=== PATIENT | female | born 1995 | race Caucasian/White ===

== ENCOUNTER → 2017-08-03 | Outpatient (CLI) | payer BC ==
[~2017-08-03] MED LIST: IBU600 MG PO; PROTONIX20 MG PO
== END ==
LOC: LAC 13:57
DX: Z39.1 Encounter for care and examination of lactating mother (principal); Z71.89 Other specified counseling

== ENCOUNTER → 2017-10-14 | Outpatient (CLI) | payer BC | LOC: LAC 13:03 | DX: Z39.1 Encounter for care and examination of lactating mother (principal); Z71.89 Other specified counseling ==

== ENCOUNTER 2019-03-12 06:46 | Inpatient (IN) | payer BC ==
[2019-03-12] VITALS (44 sets, daily range): BP systolic 93–138; BP diastolic 51–88; PULSE 55–103; TEMP 98–98.5
[~2019-03-12] VITALS: Ht 162.6 cm; Wt 69.1 kg
--- NOTE | 2019-03-12 06:55 | NUR ---
0657- Pt arrives on unit for scheduled induction, ambulatory from Admissions with , Bora. Oriented to room. Pt into bathroom, voids, changes into gown. 0703- Pt into bed, EFM and TOCO on and tracing. Assessment completed. IV start and labs obtained without difficulty. Consents explained and signed.
[2019-03-12] MEDS ORDERED: ZOFRAN 4MG T4 MG/TAB SL (07:09)
[2019-03-12] MEDS ORDERED: ZANTAC 150MG T150 MG PO (07:09)
[2019-03-12] MEDS ORDERED: CONCEPT DHA1 CAP PO (07:09)
[2019-03-12 08:09] LABS: BASO # 0.1 (0.0-0.2); BASO % 0.5 % (0.0-2.0); EOS % 0.4 % (0-4.0); GRAN # 7.7 (1.4-6.5); GRAN % 75.3 % (42.2-75.2); HEMATOCRIT 38.7 % (37.0-47.0); HEMOGLOBIN 12.4 g/dl (12.5-16.0); LYMPH # 1.5 (1.2-3.4); LYMPH % 14.7 % (20.0-51.0); MEAN CELL VOLUME 79 fl (80.0-100.0); MEAN CORPUSCULAR HEMOGLOBIN 25 pg (27.0-31.0); MEAN CORPUSCULAR HGB CONC 32 g/dl (33.0-37.0); MEAN PLATELET VOLUME 10.2 fl (7.4-10.4); MONO # 0.9 (0.1-0.6); MONO % 8.4 % (1.7-9.3); PLATELET COUNT 276 K/mm3 (130-400); RED BLOOD COUNT 4.91 M/mm3 (4.10-5.30); REDCELL DISTRIBUTION WIDTH-CV 16.2 % (11.5-14.5)
--- NOTE | 2019-03-12 12:15 | NUR ---
Naty- HAILY Long at bedside for epidural placement. Pt repositioned to sitting on side of bed. Fluid bolus initiated. 1203- O2 sat monitor on and tracing. FHR tracing well on monitor. 1209- Test dose, see anesthesia record. 1213- Sat monitor off. Pt assisted to semi-fowlers with WL.
--- NOTE | 2019-03-12 14:00 | NUR ---
1346- Pt repositioned self to , Pt calls RN to bedside excavating contractor light, vomiting. Pt states feeling better after. EFM and TOCO adjusted. Wash cloth given. Pt resting comfortably.
--- NOTE | 2019-03-12 19:00 | NUR ---
Pt up to the bathroom with standby assist and without complications. Pt was able to void. Carlie-care done. Pt transferred ambulatory to room 216. Oriented to room, bed and call light within reach. Plan of care reviewed.
[2019-03-13 03:15] VITALS: BP 101/52; PULSE 66; TEMP 97.9
[2019-03-13 09:00] VITALS: BP 111/54; PULSE 71; TEMP 98.4
--- NOTE | 2019-03-13 10:35 | NUR ---
Initial visit; Parents thanked Pest Control Chemical Technician for looking in on her and offering congratulations and God's blessings for the of their daughter. Pest Control Chemical Technician thanked them for choosing [facility].
[2019-03-13 19:20] VITALS: BP 122/75; PULSE 60; TEMP 98.2
[2019-03-14 07:15] VITALS: BP 110/62; PULSE 68; TEMP 98
[2019-03-14] MEDS ORDERED: IBU800 M1 PO (09:08)
== END 2019-03-14 12:00 | disposition home or self-care (01) | DRG 807 ==
LOC: LDR 06:46 → OB 06:54 → LDR 06:54 → OB 20:29
PROVIDERS: ADMIT Student in an Organized Health Care Education/Training Program
PROC: 10E0XZZ Delivery of Products of Conception, External Approach (ICD-10-PCS; principal; 2019-03-12)
PROC: 10907ZC Drainage of Amniotic Fluid, Therapeutic from Products of Conception, Via Natural or Artificial Opening (ICD-10-PCS; 2019-03-12)
PROC: 3E033VJ Introduction of Other Hormone into Peripheral Vein, Percutaneous Approach (ICD-10-PCS; 2019-03-12)
DX: O99.62 Diseases of the digestive system complicating childbirth (principal); Z37.0 Single live birth; O70.1 Second degree perineal laceration during delivery; K21.9 Gastro-esophageal reflux disease without esophagitis; O69.1XX0 Labor and delivery complicated by cord around neck, with compression, not applicable or unspecified; Z3A.40 40 weeks gestation of pregnancy
CPT/HCPCS: J2405; J2590; J7120

== ENCOUNTER → 2019-04-12 | Outpatient (CLI) | payer BC ==
[~2019-04-12] MED LIST changes: +CONCEPT DHA1 CAP PO; +IBU800 M1 PO; +ZANTAC 150MG T150 MG PO; +ZOFRAN 4MG T4 MG/TAB SL
--- NOTE | 2019-04-12 15:25 | NUR ---
Pt, Fara Craig, presents for outpatient consult with one month old baby girl, Rhianna Craig. Pt has concerns of poor latch and reports Rhianna pops off the breast frequently, sounds like she has swallowing issues and clicking with nursing. Rhianna was born on [birth year] and weighed 8#9.9oz. Today she weighs 9#15.1oz. Pt breastfeeds Rhianna, who latches on easily and properly for a minute or so but when milk starts to let down she starts struggling to coordinate swallows with breathing and comes off the breast, or pt removes her when she senses Rhianna is struggling. After that inital session Rhianna relatches 3-4 times, and repeats the feeding behavior again after < 1 min at the breast again. Pt instructed on a couple holds/angles that may help Rhianna handle the milk flow, which seems to help, as she stays attached and does not gulp. After less than 10 min of actually staying latched and , Rhianna has a weight gain of 3.6oz (104 gms). LC reviews block feeding as a method to decrease oversupply that should help decrease forceful let-down as well. POC: Continue ad peewee with use of block feeding schedule, and modified holds. F/U: as scheduled with physician and LC as desired. Questions invited and answered.
== END ==
LOC: OLC 14:48
DX: Z39.1 Encounter for care and examination of lactating mother (principal)

== ENCOUNTER 2022-03-31 06:14 | Inpatient (IN) | payer OTHER ==
[2022-03-31] VITALS (31 sets, daily range): BP systolic 107–148; BP diastolic 54–94; PULSE 53–112; TEMP 97.7–98.3
[~2022-03-31] VITALS: Ht 162.6 cm; Wt 71.4 kg
[2022-03-31 07:20] LABS: BASO % 0.2 % (0.0-2.0); EOS % 0.2 % (0.0-4.0); GRAN # 7.4 K/mm3 (1.4-6.5); GRAN % 78.9 % (42.2-75.2); HEMATOCRIT 40.9 % (37.0-47.0); HEMOGLOBIN 13.9 g/dl (12.5-16.0); LYMPH # 1.5 K/mm3 (1.2-3.4); LYMPH % 16.2 % (20.0-51.0); MEAN CELL VOLUME 83 fl (80.0-100.0); MEAN CORPUSCULAR HEMOGLOBIN 28 pg (27-31); MEAN CORPUSCULAR HGB CONC 34 g/dl (33.0-37.0); MEAN PLATELET VOLUME 10.7 fl (7.4-10.4); MONO # 0.4 K/mm3 (0.1-0.6); MONO % 4.3 % (1.7-9.3); PLATELET COUNT 212 K/mm3 (130-400); RED BLOOD COUNT 4.95 M/mm3 (4.10-5.30); REDCELL DISTRIBUTION WIDTH-CV 12.9 % (11.5-14.5)
[2022-03-31] MEDS ORDERED: TUMS500 MG (09:15)
[2022-03-31] MEDS ORDERED: PRILOTC (09:15)
--- NOTE | 2022-03-31 10:43 | NUR ---
1030-PT SITTING FOR EPIDURAL. UNABLE TO CONTINOUSLY MONITOR FHR. RN AND ANESTHESIA AT BEDSIDE. IV BOLUS GIVEN, PULSE OX ON, TIME OUT COMPLETED.
--- NOTE | 2022-03-31 14:40 | NUR ---
1253-PT PUSHING WITH CONTRACTIONS. RN AND MD AT BEDSIDE MONITORING FHR. PT TOLERATING WELL. CATEGORY 1 STRIP AT THIS TIME.
--- NOTE | 2022-03-31 19:58 | NUR ---
PATIENT OBSERVED AMBULATING OFF THE UNIT TO THE NURSERY WITH SPOUSE TO VISIT BABY WITH NO APPARENT SIGN OF DISTRESS.
[2022-04-01 04:00] VITALS: BP 114/56; PULSE 77; TEMP 98
[2022-04-01 08:22] VITALS: BP 101/60; PULSE 63; TEMP 97.7
--- NOTE | 2022-04-01 09:49 | NUR ---
Initial visit; Patient resting, Roll Cutter left card offering congratulations and God's blessings for the of her daughter and information regarding the availability of [facility] at our hospital.
[2022-04-01 16:37] VITALS: BP 113/72; PULSE 60; TEMP 98.3
[2022-04-01 19:55] VITALS: BP 120/70; PULSE 58; TEMP 98.4
[2022-04-02 08:04] VITALS: BP 104/63; PULSE 55; TEMP 97.7
== END 2022-04-02 12:20 | disposition home or self-care (01) | DRG 807 ==
LOC: OB 06:14 → LDR 06:14 → OB 19:30
PROVIDERS: ADMIT Student in an Organized Health Care Education/Training Program
PROC: 10E0XZZ Delivery of Products of Conception, External Approach (ICD-10-PCS; principal; 2022-03-31)
PROC: 0KQM0ZZ Repair Perineum Muscle, Open Approach (ICD-10-PCS; 2022-03-31)
PROC: 10907ZC Drainage of Amniotic Fluid, Therapeutic from Products of Conception, Via Natural or Artificial Opening (ICD-10-PCS; 2022-03-31)
DX: O48.0 Post-term pregnancy (principal); Z37.0 Single live birth; Z3A.40 40 weeks gestation of pregnancy; O76 Abnormality in fetal heart rate and rhythm complicating labor and delivery; O70.1 Second degree perineal laceration during delivery; O69.81X0 Labor and delivery complicated by cord around neck, without compression, not applicable or unspecified
CPT/HCPCS: J2405; J2590; J2795; J7120

== ENCOUNTER 2024-03-16 19:04 | Outpatient (CLI) | payer OTHER ==
[~2024-03-16] VITALS: Ht 162.6 cm; Wt 68.6 kg
[~2024-03-16 19:04] MED LIST changes: +PRILOTC; +TUMS500 MG
--- NOTE | 2024-03-16 19:10 | NUR ---
Ambulatory to unit for labor assessment. Oriented to room, plan of care. Pt reports " my [age] year old elbowed me in my stomach. The pain took my breath away." Pt points to upper L quadrant, stating "it stopped huting, but if I feel around, I can find the spot and it's tender." Pt denies LOF or vaginal bleeding and states "they're both moving around"
[2024-03-16 19:15] VITALS: BP 136/65; PULSE 82; TEMP 97.9
[2024-03-16] MEDS ORDERED: LR 1,000 ML IV PRN (19:45)
--- NOTE | 2024-03-16 21:00 | NUR ---
More uterine activity noted on monitor. Pt states "I feel like I might have to go to the bathroom". Off monitor, up to bathroom.
[2024-03-16 21:15] VITALS: BP 127/67; PULSE 82
--- NOTE | 2024-03-16 21:40 | NUR ---
Pt reports "I'm not really feeling any cramping since I went to the bathroom." Denies LOF or bleeding while up to void. Both babies very active, difficult maintaining FHT's tracing.
== END 2024-03-16 21:50 | disposition home or self-care (01) ==
LOC: LDRO 19:04 → LDR 19:30 → LDRO 21:50
DX: O9A.213 Injury, poisoning and certain other consequences of external causes complicating pregnancy, third trimester (principal); Z3A.30 30 weeks gestation of pregnancy
CPT/HCPCS: OP

== ENCOUNTER 2024-05-08 06:18 | Inpatient (IN) | payer OTHER ==
[~2024-05-08] VITALS: Ht 162.6 cm; Wt 70.5 kg
[2024-05-08] VITALS (54 sets, daily range): BP systolic 63–139; BP diastolic 31–106; PULSE 53–110; TEMP 98–100.6
--- NOTE | 2024-05-08 06:20 | NUR ---
38/[address] ALLEN HERE FOR SCHEDULED INDUCTION FOR CYNDI TWINS. PT. CONFIRMS SOME CONTRACTIONS BUT NOTHING REGULAR OR PAINFUL. PT CONFIRMS MOVEMENT. PT. DENIES LOF AND VAGINAL BLEEDING.
[2024-05-08] MEDS ORDERED: LR 1,000 ML IV SCH (06:30)
[2024-05-08] MEDS ORDERED: LR & Oxytocin 500 ML IV SCH (06:30)
[2024-05-08 07:28] LABS: BASO % 0.4 % (0.0-2.0); EOS % 0.2 % (0.0-4.0); GRAN # 7.3 K/mm3 (1.4-6.5); GRAN % 75.3 % (42.2-75.2); HEMATOCRIT 38.6 % (37.0-47.0); HEMOGLOBIN 12.9 g/dl (12.5-16.0); LYMPH # 1.7 K/mm3 (1.2-3.4); LYMPH % 17.8 % (20.0-51.0); MEAN CELL VOLUME 79 fl (80.0-100.0); MEAN CORPUSCULAR HEMOGLOBIN 26 pg (27-31); MEAN CORPUSCULAR HGB CONC 33 g/dl (33.0-37.0); MEAN PLATELET VOLUME 10.9 fl (7.4-10.4); MONO # 0.6 K/mm3 (0.1-0.6); PLATELET COUNT 213 K/mm3 (130-400); RED BLOOD COUNT 4.91 M/mm3 (4.10-5.30); REDCELL DISTRIBUTION WIDTH-CV 19.5 % (11.5-14.5)
[2024-05-08] MEDS ORDERED: NATURAL IRON65 MG (07:50)
[2024-05-08] MEDS ORDERED: VALTREX 50500 MG/TAB (07:52)
--- NOTE | 2024-05-08 09:39 | NUR ---
DR. ALLEN AT BEDSIDE FOR AROM. SVE /-1, AROM AT 0939 WITH CLEAR FLUID NOTED. PT TOLERATES PROCEDURE WELL. DR. ALLEN PERFORMS ULTRASOUND, CONFIRMATION OF BABY A IS VERTEX, AND BABY B IS BREECH.
[2024-05-08] MEDS ORDERED: Ondansetron 4 MG/2 ML VIAL IV PRN (10:45)
[2024-05-08] MEDS ORDERED: diphenhydrAMINE 50 MG/ML 1 ML VIAL IV PRN (10:45)
[2024-05-08] MEDS ORDERED: Naloxone 0.4 MG/ML VIAL IV PRN ×2 (10:45→14:00)
[2024-05-08] MEDS ORDERED: diphenhydrAMINE 25 MG CAP PO PRN (10:45)
[2024-05-08] MEDS ORDERED: ePHEDrine 50 MG/10 ML VIAL IV PRN (10:45)
--- NOTE | 2024-05-08 10:54 | NUR ---
PT SITTING ON EDGE OF BED FOR EPIDURAL PLACEMENT. DIFFICULT TO MAINTAIN HEART TONES WHILE IN THIS POSITION. ARGELIA BAG SHAKER AT BEDSIDE FOR EPIDURAL PLACEMENT. LR BOLUS RUNNING. ARGELIA BAG SHAKER ADMINISTERS SINGLE SHOT AT 1054. CONTINOUOS EPIDURAL HOOKED UP BY ARGELIA BAG SHAKER. PT TOLERATES PROCEDURE WELL
[2024-05-08] MEDS ORDERED: ROPivacaine PF 0.2% 200 ML IV ONE (11:02)
--- NOTE | 2024-05-08 13:20 | NUR ---
PT MOVED TO THE OR AT 1255 FOR PUSHING. 1308: PT COMPLETE, UP IN STIRRUPS IN OR AND PUSHING BEGINS. DR. ALLEN, DR. MARTINEZ, AND ARGELIA JOHANSEN PRESENT FOR PUSHING IN OR 1314: OF VIABLE FEMALE INFANT, PLACED ON MOTHER'S CHEST AND NURSERY NURSE TAKES OVER CARE 1317: AROM BY DR. ALLEN FOR SECOND 1320: SVE OF VIABLE FEMALE , PLACED ON MOTHER'S CHEST AND NURSERY NURSE TAKES OVER CARE 1324: DELIVERY OF BOTH PLACENTAS, PITOCIN BOLUS STARTED AT 333 MU/HR DR. ALLEN REPAIRS 1ST DEGREE LACERATION, PT TAKEN OUT OF STIRRUPS, MOVED BACK TO LABOR BED AND RETURNED BACK TO LABOR ROOM FOR RECOVERY IN STABLE CONDITION. WILL CONTINUE TO MONITOR
[2024-05-08] MEDS ORDERED: Acetaminophen 500 MG TAB PO SCH (14:00)
[2024-05-08] MEDS ORDERED: Phenylephrine/Mineral Oil/Petrolatum 57 GM TUBE RC PRN (14:00)
[2024-05-08] MEDS ORDERED: Measles/Mumps/Rubella Virus Vaccine Live w Diluent 0.5 ML VIAL SQ SCH (14:00)
[2024-05-08] MEDS ORDERED: Magnes Hydrox (MOM) 80 MG/ML 30 ML CUP PO PRN (14:00)
[2024-05-08] MEDS ORDERED: Loratadine 10 MG TAB PO PRN (14:00)
[2024-05-08] MEDS ORDERED: oxyCODONE 5 MG TAB PO PRN (14:00)
[2024-05-08] MEDS ORDERED: Ibuprofen 800 MG TAB PO SCH (14:00)
[2024-05-08] MEDS ORDERED: Mag/Al Hydrox/Simeth Susp 30 ML CUP PO PRN (14:00)
[2024-05-08] MEDS ORDERED: Witch Hazel 50% Pads Bulk TUB TP PRN (14:00)
--- NOTE | 2024-05-08 16:53 | NUR ---
1645 pt calls out, concerned about her bleeding. states she feels like she is "bleeding heavier than in the past". RN assesses bleeding and performs fundal massage. bleeding small but uterus was boggy initially. firmed up with massage. Nisha CALVERT called for update, waiting control clerk subassembly back.
[2024-05-08] MEDS ORDERED: Sennosides/Docusate 8.6-50 MG TAB PO SCH (17:00)
[2024-05-08] MEDS ORDERED: Methylergonovine 0.2 MG/ML 1 ML AMPUL IM ONE (17:15)
[2024-05-08 17:42] LABS: BASO # 0.1 K/mm3 (0.0-0.2); BASO % 0.3 % (0.0-2.0); GRAN # 14.1 K/mm3 (1.4-6.5); GRAN % 79.4 % (42.2-75.2); LYMPH # 2.1 K/mm3 (1.2-3.4); LYMPH % 11.9 % (20.0-51.0); MEAN CELL VOLUME 80 fl (80.0-100.0); MEAN CORPUSCULAR HGB CONC 32 g/dl (33.0-37.0); MEAN PLATELET VOLUME 10.5 fl (7.4-10.4); MONO # 1.4 K/mm3 (0.1-0.6); PLATELET COUNT 311 K/mm3 (130-400); RED BLOOD COUNT 4.04 M/mm3 (4.10-5.30); REDCELL DISTRIBUTION WIDTH-CV 19.4 % (11.5-14.5)
[2024-05-08 17:45] LABS: HEMATOCRIT 32.5 % (37.0-47.0); HEMOGLOBIN 10.5 g/dl (12.5-16.0); MEAN CORPUSCULAR HEMOGLOBIN 26 pg (27-31)
[2024-05-08] MEDS ORDERED: miSOPROStol 200 MCG TAB RC ONE (17:45)
[2024-05-08] MEDS ORDERED: Carboprost 250 MCG/ML AMP IM ONE (17:45)
[2024-05-08] MEDS ORDERED: fentaNYL 50 MCG/ML 2 ML VIAL IV ONE (17:45)
[2024-05-08] MEDS ORDERED: Diphenoxylate/Atropine 2.5-0.025 MG TAB PO PRN (17:45)
--- NOTE | 2024-05-08 17:56 | NUR ---
1651 ATTEMPT TO CALL [facility], CLINIC RN STATES SHE WILL CALL US BACK ONCE SHE GETS HER OUT OF A PT ROOM 1700 NOVELTIES SALES REPRESENTATIVE CALLED TO ROOM FOR BLEEDING 1705 CALL TO TIFFANY TO UPDATE MD ON UTERUS NOW 2-3 ABOVE UTERUS.
[2024-05-08] MEDS ORDERED: Promethazine 50 MG/ML 1 ML VIAL IM PRN (18:45)
--- NOTE | 2024-05-08 18:45 | NUR ---
184- RN AT BEDSIDE. FUNDAL CHECK DONE. BLEEDING IS SMALL WITH ONE WALNUT SIZE CLOT. VITALS TAKEN. 1901- DR. ALLEN NOTIFIED OF TEMPERATURE OF 100.6. SEE PHYSICIAN NOTIFICATION. 1916- BLOOD TRANSFUSION VITALS TAKEN. 2044- BLOOD TRANSFUSION COMPLETE. 2099- SLY CARE PROVIDED FOR PT. PT REPOSITIONED IN BED. EDUCATION PROVIDED ON LOMODIL AND METHERGINE POSSIBLE SIDE EFFECTS.
[2024-05-08] MEDS ORDERED: traZODone 50 MG TAB PO PRN (21:00)
[2024-05-08] MEDS ORDERED: Methylergonovine 0.2 MG TAB PO SCH (21:00)
[2024-05-08 23:37] LABS: HEMOGLOBIN 11.1 g/dl (12.5-16.0); MEAN CELL VOLUME 79 fl (80.0-100.0); MEAN CORPUSCULAR HEMOGLOBIN 27 pg (27-31); MEAN CORPUSCULAR HGB CONC 34 g/dl (33.0-37.0); MEAN PLATELET VOLUME 10.3 fl (7.4-10.4); REDCELL DISTRIBUTION WIDTH-CV 18.9 % (11.5-14.5)
[2024-05-08 23:39] LABS: HEMATOCRIT 32.5 % (37.0-47.0); PLATELET COUNT 176 K/mm3 (130-400)
[2024-05-09 02:30] VITALS: BP 102/48; PULSE 60
[2024-05-09 04:30] VITALS: BP 100/62; PULSE 60
[2024-05-09 07:00] VITALS: BP 105/68; PULSE 76; TEMP 97.9
--- NOTE | 2024-05-09 09:14 | NUR ---
Initial visit; Parents thanked for looking in on them and offering congratulations and God's blessings for the of their twin girls. thanked family for choosing [facility] and was pleased to hear that although patient's delivery began somewhat difficult she is doing well at this time as are the babies and Dad.
--- NOTE | 2024-05-09 15:25 | NUR ---
REPORT RECEIVED FROM Kiersten BEVERLY RN.
[2024-05-09 17:06] VITALS: BP 109/58; PULSE 62; TEMP 97.7
[2024-05-09 19:00] VITALS: BP 113/47; PULSE 53; TEMP 98.6
[2024-05-10 07:39] LABS: MEAN CELL VOLUME 82 fl (80.0-100.0); MEAN CORPUSCULAR HGB CONC 33 g/dl (33.0-37.0); MEAN PLATELET VOLUME 10.7 fl (7.4-10.4); PLATELET COUNT 222 K/mm3 (130-400); RED BLOOD COUNT 3.35 M/mm3 (4.10-5.30); REDCELL DISTRIBUTION WIDTH-CV 19.2 % (11.5-14.5)
[2024-05-10 07:46] LABS: HEMATOCRIT 27.4 % (37.0-47.0); MEAN CORPUSCULAR HEMOGLOBIN 27 pg (27-31)
[2024-05-10 08:30] VITALS: BP 121/73; PULSE 71; TEMP 97.7
[2024-05-10 16:32] VITALS: BP 131/67; PULSE 75; TEMP 98.1
[2024-05-10 19:10] VITALS: BP 120/67; PULSE 61; TEMP 98.6
[2024-05-11 08:13] VITALS: BP 117/70; PULSE 69; TEMP 98
--- NOTE | 2024-05-11 10:55 | NUR ---
DISCHARGE INSTRUCTIONS REVIEWED WITH PT REGARDING FOLLOW-UP AND SELF CARE AT HOME, REASONS TO CALL/SEE PHYSICIAN. QUESTIONS INVITED AND ANSWERED. PT VERBALIZES UNDERSTANDING, DISCHARGED HOME, AMBULATES OUT OF FACILITY ACCOMPANIED BY SPOUSE AND AIDE.
== END 2024-05-11 11:15 | disposition home or self-care (01) | DRG 806 ==
LOC: LDR 06:18 → OB 06:18
PROVIDERS: ADMIT Student in an Organized Health Care Education/Training Program
PROC: 10E0XZZ Delivery of Products of Conception, External Approach (ICD-10-PCS; principal; 2024-05-08)
PROC: 0KQM0ZZ Repair Perineum Muscle, Open Approach (ICD-10-PCS; 2024-05-08)
PROC: 3E033VJ Introduction of Other Hormone into Peripheral Vein, Percutaneous Approach (ICD-10-PCS; 2024-05-08)
PROC: 10907ZC Drainage of Amniotic Fluid, Therapeutic from Products of Conception, Via Natural or Artificial Opening (ICD-10-PCS; 2024-05-08)
PROC: 30233N1 Transfusion of Nonautologous Red Blood Cells into Peripheral Vein, Percutaneous Approach (ICD-10-PCS; 2024-05-08)
DX: O30.043 Twin pregnancy, dichorionic/diamniotic, third trimester (principal); B00.59 Other herpesviral disease of eye; Z37.2 Twins, both liveborn; O98.52 Other viral diseases complicating childbirth; O72.1 Other immediate postpartum hemorrhage; D62 Acute posthemorrhagic anemia; O99.02 Anemia complicating childbirth; E74.39 Other disorders of intestinal carbohydrate absorption; N75.0 Cyst of Bartholin's gland; O70.1 Second degree perineal laceration during delivery; I95.9 Hypotension, unspecified; O99.892 Other specified diseases and conditions complicating childbirth; O90.89 Other complications of the puerperium, not elsewhere classified; O99.284 Endocrine, nutritional and metabolic diseases complicating childbirth; Z3A.38 38 weeks gestation of pregnancy
CPT/HCPCS: J2210; J2405; J2550; J2590; J2795; J3010; J7040; J7120; P9016